=== PATIENT | female | born 1955 | race Caucasian/White ===

== ENCOUNTER → 2018-03-02 | Outpatient (CLI) | payer BC ==
[~2018-03-02] MED LIST: IOHEXOL 300 MG/ML 50 ML VIAL. IT ONE; LIDOCAINE WITH 8.4% SOD BICARB 3 ML DISP.SYRIN. INJ ONE
[2018-03-02 09:30] VITALS: BP 114/66
[2018-03-02 10:11] VITALS: BP 134/66
--- NOTE | 2018-03-02 10:35 | RAD ---
Cervical myelogram, 03/02/2018: History: Left cervical radiculopathy Under local anesthesia, aseptic conditions and fluoroscopic guidance a lumbar puncture was performed at the L2-3 level utilizing a 25-gauge Fadumo spinal needle. Good clear CSF flow was obtained following which 11 cc of Omnipaque 300 was injected into the thecal sac. The spinal needle was then removed and hemostasis obtained. Appropriate digital imaging of the cervical region was then performed. Due to the patient's of moderate thoracic kyphosis it was necessary to maneuver the contrast into the cervical region in a lateral decubitus position. 4.3 minutes of fluoroscopy time was utilized. 12 fluoroscopic spot images were recorded. The patient tolerated the procedure well and was sent to CT in good condition. The following findings were delineated on the myelogram: 1. There has been a previous anterior spinal fusion from C5 through C7 with an anterior fixation plate and multiple screws in place. Partially radiopaque disc spacers are present at C5-6 and C6-7. Vertebral body alignment through this region is anatomic. 2. There is a mild anterior extradural defect at C3-4 and to a lesser degree at C4-5, C5-6 and C7-T1. There is a mild posterior extradural defect at C4-5. No high-grade central spinal stenosis is evident. CT of the cervical spine-post myelogram, 03/02/2018: Multidetector imaging was performed with multiplanar reconstructions produced. The following findings are delineated: 1. No fracture, subluxation or destructive bony lesion is seen. There are moderate scattered degenerative changes involving the facet joints, greatest on the left at C4-5. 2. No significant abnormality is identified at the C2-3 disc level. 3. At C3-4 there is mild posterior disc bulging with mild posterior marginal spurring laterally on both sides. The central spinal canal and neural foramina are well maintained. 4. At C4-5 there is mild broad-based posterior disc bulging and minimal marginal spurring. There is moderate facet joint arthropathy, worse on the left with a vacuum phenomena at that facet joint. The central spinal canal is well maintained. There is mild left foraminal narrowing due to the spurring. 5. At C5-6 there is moderate posterior marginal spurring. The central spinal canal is well-maintained. There is mild bilateral foraminal narrowing 6. At C6-7 there is solid bony fusion along the posterior margin of the disc space with only minimal marginal spurring. The central spinal canal and neural foramina are well maintained. 7. At C7-T1 there is moderate posterior marginal spurring. The central spinal canal and neural foramina are well maintained. 8. Incidental note is made of mild calcific plaquing at the carotid bifurcations. IMPRESSION: 1. Previous anterior spinal fusion and instrumentation from C5 through C7. 3. Mild to moderate scattered degenerative changes as described above without evidence of disc herniation or significant central spinal stenosis. PQRS Compliance Statement: One or more of the following individualized dose reduction techniques were utilized for this examination: 1. Automated exposure control 2. Adjustment of the mA and/or kV according to patient size 3. Use of iterative reconstruction technique
== END | disposition home or self-care (01) ==
LOC: RAD 08:23
PROVIDERS: ATTEND Neurological Surgery
DX: M47.22 Other spondylosis with radiculopathy, cervical region (principal)
CPT/HCPCS: 72126; 72240; Q9967

== ENCOUNTER 2018-03-14 07:12 | Day surgery (SDC) | payer BC ==
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
[~2018-03-14] VITALS: Ht 160 cm; Wt 61.7 kg
[~2018-03-14 07:12] MED LIST changes: +BUPIVAC MPF-EPI 0.5%-1:200000 30 ML VIAL. ONE; +DOXY100C14 PO; +FLEC100T PO; +GELATIN SPONGE SIZE 100. ONE; -IOHEXOL 300 MG/ML 50 ML VIAL. IT ONE; +IV RINGERS,LACTATED 1000ML 1,000 ML IV SCH; +KETOROLAC 60 MG/2 ML INJ FOR OR. ONE; +LEVO50TA PO; +LIDOCAINE 1% PF 2 ML VIAL. ID PRN; -LIDOCAINE WITH 8.4% SOD BICARB 3 ML DISP.SYRIN. INJ ONE; +LOSA1TAB22 PO; +MONT10TA9 PO; +PROCHLORPERAZINE 10 MG/2 ML VIAL. IV PRN; +THROMBIN TOPICAL 20,000 UNIT SPRAY.SYRN KIT TP ONE; +UBID100C26 PO; +VITA1TAB19 PO; +fentaNYL PF VIAL 100 MCG/2 ML VIAL IV PRN
[2018-03-14] MEDS ORDERED: SCOPOLAMINE 1.5MG PATCH. TD ONE (08:00)
[2018-03-14] MEDS ORDERED: ROCURONIUM 50 MG/5 ML VIAL. ONE (08:22)
[2018-03-14] MEDS ORDERED: MIDAZOLAM HCL/PF 2 MG/2 ML VIAL. ONE (08:22)
[2018-03-14] MEDS ORDERED: PROPOFOL 50 ML IV ONE (08:23)
[2018-03-14] MEDS ORDERED: DESFLURANE > 120 MINUTES IH ONE ×2 (08:23→11:14)
[2018-03-14] MEDS ORDERED: LIDOCAINE 2% PF Vial for OR 5 ML VIAL. ONE (08:23)
[2018-03-14] MEDS ORDERED: ONDANSETRON PF 4 MG/2 ML VIAL. ONE (08:23)
[2018-03-14] MEDS ORDERED: fentaNYL PF VIAL 250 MCG/5 ML VIAL ONE (08:23)
[2018-03-14] MEDS ORDERED: REMIFENTANIL 2 MG VIAL. IV ONE (08:23)
[2018-03-14] MEDS ORDERED: PROPOFOL 20 ML IV ONE (08:23)
[2018-03-14] MEDS ORDERED: DEXAMETHASONE SOD PHOS 20 MG/5 ML VIAL. ONE (08:23)
[2018-03-14] MEDS: BACITRACIN 50,000 UNIT in IV NORMAL SALINE 1000ML BAG 1,000 ML IRR ONE ×2 (09:44→09:56)
[2018-03-14] MEDS ORDERED: PHENYLEPHRINE 10 MG/ML VIAL. ONE ×2 (11:13→11:14)
[2018-03-14] MEDS ORDERED: GLYCOPYRROLATE 1 MG/5 ML VIAL. ONE (11:14)
[2018-03-14] MEDS ORDERED: NEOSTIGMINE METHYLSULFATE 5 MG/5 ML SYRINGE. ONE (11:14)
[2018-03-14] MEDS ORDERED: 0.9 % SODIUM CHLORIDE 20 ML VIAL. IJ ONE ×3 (11:14)
--- NOTE | 2018-03-14 11:44 | DISCH ---
DISCHARGE INSTRUCTIONS Condition on Discharge Condition on Discharge: Stable Activity After Discharge Activity Instructions for Disc: Activity as tolerated, Avoid exertion Other activity instructions: no driving for a week Bathing Instructions: Shower-keep dressing dry Lifting Instructions after Dis: No heavy lifting, No pulling or pushing, Do not lift >10 pounds Diet after Discharge Diet after Discharge: Regular Wound Incision Care Wound/Incision Care: Ice to area for comfort Other wound/incision instructi: may remove dressing in 48 hrs if dry then may shower, no soaking Contacting the after DC Call your doctor for: Concerns you may have Follow-Up Follow up with: Dr. Johns's nurse in 2 weeks [phone] CHICO JOHNS MD Mar 14, 2018 11:43
[2018-03-14] MEDS ORDERED: OXYC1TAB15 PO (11:47)
[2018-03-14] MEDS ORDERED: METH-38 PO (11:47)
[2018-03-14] MEDS ORDERED: DOCU-109 PO (11:47)
[2018-03-14] MEDS ORDERED: KETOROLAC 30 MG/ML VIAL. ONE (11:55)
[2018-03-14] MEDS ORDERED: oxyCODONE/APAP 5/325 1 TAB TABLET ONE (12:09)
[2018-03-14] MEDS ORDERED: oxyCODONE/APAP 5/325 1 TAB TABLET PO ONE (12:15)
[2018-03-14] MEDS ORDERED: oxyCODONE/APAP 5/325 1 TAB TABLET PO PRN (12:15)
[2018-03-14] MEDS ORDERED: KETOROLAC 30 MG/ML VIAL. IV ONE (12:15)
[2018-03-14 13:15] VITALS: BP 120/72
--- NOTE | 2018-03-14 20:58 | OP ---
DATE OF SURGERY: 03/14/2018. PREOPERATIVE DIAGNOSIS: Foraminal narrowing with left cervical radiculopathy, C4-C5 and C5-C6. POSTOPERATIVE DIAGNOSIS: Foraminal narrowing with left cervical radiculopathy, C4-C5 and C5-C6. OPERATION PERFORMED: Posterior cervical micro hemilaminotomy with medial facetotomy and decompression of the nerve root C4-C5 and C5-C6 on the left. The operation was done with EMG monitoring, SSEP monitoring, motor evoked potentials, microscopy and fluoroscopy. SURGEON: Dominik Johns M.D. AUTOMATIC LUMP MAKING MACHINE TENDER: NOBLE Mitchell who assisted with the exposure, the microdecompression as well as the closure. OPERATIVE INDICATIONS: This is a very pleasant 62-year-old woman who developed intractable and progressively severe neck and left arm pain, numbness and weakness. On imaging studies, which included myelography, she was found to have foraminal narrowing, which was moderately severe at C5-C6 and severe at C4-C5 and I recommended microdecompressive surgery. I spoke with her about the surgery, the risks, the technique and the expected postoperative course and she wished to go ahead. DESCRIPTION OF PROCEDURE: Following general endotracheal anesthesia, the patient was positioned prone in Dobbins pins on the Khris table. Her posterior cervical region was then clipped, prepped and draped in the standard fashion. MARY hose and AV impulse boots were applied for DVT prophylaxis. The microscope was draped. Fluoroscopy was draped and brought into the field. Monitoring was established. Ancef 2 grams was given less than 1 hour prior to the initiation of the surgery. Using fluoroscopic guidance, a small midline posterior incision was made, dissected down through skin and subcutaneous tissue, reflected the paraspinal muscles and placed a Oconnell retractor. I brought in the microscope and the remainder of the surgery done with a microscope using microscopic technique beginning at C5-C6. I burred down a small hemilaminotomy which I enlarged superiorly, inferiorly and laterally. I visualized the C6 nerve root and then used the high speed air drill again through the microscope very carefully, thinned the bone above the nerve root and followed the root laterally trimming with a 1 and 2 mm micro Kerrison's. I worked laterally past the regions of the stenosis and opened up the foramen and could easily pass a blunt hook along the course of the root without any difficulty. Hemostasis was never a problem. I did use a small amount of Gelfoam and I copiously irrigated the region. I also used small amounts of bone wax during the procedure again for maintenance of hemostasis. I then moved superiorly to C4-C5 in a similar fashion, burred down a hemilaminotomy and followed the C5 root laterally. Interestingly, a portion of the facet process was fractured and tipped down compressing the superior portion of the root as it entered into the foramen. I gently thinned this bone with a high-speed air drill and then grasped and worked superiorly back in a way. It was scarred to the nerve root and I used micro instruments to free it from the root and then removed it. I then further opened up the neural foramen and I assured myself that the root was very free. I irrigated copiously with antibiotic solution. I then used again bone wax as well as Gelfoam to cover the hemilaminotomy site. I removed the retractor, obtained excellent hemostasis in the muscle and irrigated copiously. Then I closed the wound in layers with absorbable suture and skin was closed with skin bridget. The patient awakened uneventfully, taken to the recovery room with normal strength in her extremities. I was quite pleased with the surgery. DOMINIK JOHNS MD DR: JAYA/julita JOB#: [id number] / [id number] HARPREET
--- NOTE | 2018-03-15 17:09 | PATHOLOGY ---
[facility] Accession Number: [id number] . 01 Material submitted: . CERVICAL DECOMPRESSION . 01 Clinical history: . Cervical stenosis, radiculopathy . 02 Diagnosis: Segments of fibrocartilaginous, fibroadipose, and skeletal muscle tissue and bone, cervical decompression: - Degenerative changes of fibrocartilaginous tissue. (JPM:electrocardiograph repairer; 03/15/2018) MBR/03/15/2018 . 02 Comment: There is no evidence of an acute inflammatory process or malignancy. (JPM:electrocardiograph repairer; 03/15/2018) . 02 Electronically signed: . Baldemar Oconnell MD, Pathologist NPI- [id number] . 01 Gross description: . Received in formalin labeled "Patricia Torres, cervical decompression," are several pieces of glistening, fibrous tissue measuring 1.9 x 1.4 x 0.7 cm in aggregate dimensions, containing small fragments of possible bone. The tissue submitted representatively in cassette A1, following decalcification. (TSD; 03/14/2018) TOB/TOB . 02 Pathologist provided ICD-10: M50.30 . 02 CPT . 755152, [id number] Specimen Comment: A courtesy copy of this report has been sent to Specimen Comment: [phone], . Specimen Comment: Report sent to / DR RAMIREZ Performed at: 01 [facility] [address], [place] [id number] MD Aaron Reardon MD Phone: [phone] Performed at: 02 [facility] [address], [place] [id number] MD Baldemar Oconnell MD Phone: [phone]
== END 2018-03-14 13:33 | disposition home or self-care (01) ==
LOC: SURG 07:12
PROVIDERS: ATTEND Neurological Surgery
DX: M48.02 Spinal stenosis, cervical region (principal); M54.12 Radiculopathy, cervical region; I10 Essential (primary) hypertension; I48.91 Unspecified atrial fibrillation; Z90.710 Acquired absence of both cervix and uterus; Z90.79 Acquired absence of other genital organ(s); Z90.722 Acquired absence of ovaries, bilateral; Z90.49 Acquired absence of other specified parts of digestive tract; Z98.1 Arthrodesis status; Z88.2 Allergy status to sulfonamides; Z88.5 Allergy status to narcotic agent; Z88.8 Allergy status to other drugs, medicaments and biological substances; Z98.890 Other specified postprocedural states; Z90.81 Acquired absence of spleen; Z82.49 Family history of ischemic heart disease and other diseases of the circulatory system; Z72.89 Other problems related to lifestyle; Z79.899 Other long term (current) drug therapy; Z79.82 Long term (current) use of aspirin; M96.0 Pseudarthrosis after fusion or arthrodesis
CPT/HCPCS: 63045; 63048; 76000; 88304; 88311; 97162; 97530; A7015; J0690; J1100; J1885; J2001; J2250; J2405; J2704; J2710; J3010; J3490; J7030; J7120